=== PATIENT | female | born 1955 | race Caucasian/White ===

== ENCOUNTER 2022-01-29 14:29 | Outpatient (CLI) | payer MEDICARE ==
[2022-01-29 16:16] LABS: Anion Gap 14 mmol/L (10-20); BUN (Urea Nitrogen) 21 mg/dL (9.8-20.1); Calc. Creatinine Clearance 0 mL/min (70-130); Calcium 9.6 mg/dL (7.8-10.44); Carbon Dioxide 31 mmol/L (23-31); Chloride 103 mmol/L (98-107); Glucose 116 mg/dL (80-115); Potassium 4.4 mmol/L (3.5-5.1); Sodium 144 mmol/L (136-145)
[2022-01-30 12:38] LABS: SARS-CoV-2 PCR by NAA Not Detected (NotDetected)
== END 2022-01-29 14:30 | disposition home or self-care (01) ==
LOC: LABBT 14:29
PROVIDERS: ATTEND Surgery
DX: Z01.812 Encounter for preprocedural laboratory examination (principal); M79.89 Other specified soft tissue disorders; Z20.822 Contact with and (suspected) exposure to COVID-19
CPT/HCPCS: 80048; U0003; U0005

== ENCOUNTER 2022-02-03 11:36 | Day surgery (SDC) | payer MEDICARE ==
[2022-02-01 14:59] VITALS: BMI 28.3
[2022-02-03] MEDS ORDERED: fentaNYL Citrate/PF 100 MCG/2 ML SYRINGE ONE ×2 (14:18→14:37)
[2022-02-03] MEDS ORDERED: SUGAMMADEX SODIUM 200 MG/2 ML VIAL ONE (14:18)
[2022-02-03] MEDS ORDERED: Bupivacaine PF 0.5% 30 ML VIAL ONE (14:30)
[2022-02-03] MEDS ORDERED: Lidocaine 1% w/Epinephrine 1:100K 20 ML VIAL ONE (14:30)
[2022-02-03] MEDS ORDERED: ceFAZolin (BATCH) 2 GM/100 ML BAG ONE (14:36)
[2022-02-03] MEDS ORDERED: Famotidine/PF 20 mg/2ml Vial ONE (14:37)
[2022-02-03] MEDS ORDERED: Ondansetron PF 4 MG/2 ML Vial ONE (14:50)
[2022-02-03] MEDS ORDERED: Ketorolac Tromethamine 30 MG/ML VIAL ONE (14:50)
[2022-02-03] MEDS ORDERED: Rocuronium Bromide 10 MG/ML (10ML VIAL) ONE (14:50)
[2022-02-03] MEDS ORDERED: Lidocaine 1% PF 5 ML VIAL ONE (14:50)
[2022-02-03] MEDS ORDERED: PROPOFOL 200 MG/20 ML VIAL ONE (14:50)
[2022-02-03] MEDS ORDERED: Dexamethasone 20 MG/5 ML VIAL ONE (14:50)
== END 2022-02-03 17:13 | disposition home or self-care (01) ==
LOC: SDC 11:36
PROVIDERS: ATTEND Surgery
PROC: 0JB90ZZ Excision of Buttock Subcutaneous Tissue and Fascia, Open Approach (ICD-10-PCS; principal; 2022-02-03)
DX: D17.39 Benign lipomatous neoplasm of skin and subcutaneous tissue of other sites (principal); E78.00 Pure hypercholesterolemia, unspecified; I10 Essential (primary) hypertension; Z79.899 Other long term (current) drug therapy
CPT/HCPCS: 88304; J0690; J1100; J1885; J2405; J2704; S0020; S0028

== ENCOUNTER 2023-01-26 13:30 | Outpatient (CLI) | payer MEDICARE ==
[2023-01-26 16:07] LABS: Hemoglobin 12.4 g/dL (12.0-15.5); Mean Corpuscular HGB CONC 32.2 g/dL (32.0-36.0); Mean Corpuscular Hemoglobin 29.2 pg (27.0-33.0); Mean Corpuscular Volume 90.8 fl (81.6-98.3); Platelet Count 237 10x3/uL (150-450); RBC Distribution Width 13.1 % (11.5-14.5); Red Blood Cell (RBC) Count 4.24 10x6/uL (3.90-5.03); White Blood Cell (WBC) Count 6.9 10x3/uL (3.5-10.5)
[2023-01-26 16:23] LABS: Anion Gap 12 mmol/L (10-20); BUN (Urea Nitrogen) 20 mg/dL (9.8-20.1); Calc. Creatinine Clearance 0 mL/min (70-130); Calcium 9.2 mg/dL (7.8-10.44); Carbon Dioxide 33 mmol/L (23-31); Chloride 100 mmol/L (98-107); Estimated GFR 75; Glucose 109 mg/dL (80-115); Potassium 4.2 mmol/L (3.5-5.1); Sodium 141 mmol/L (136-145)
== END 2023-01-26 13:31 | disposition home or self-care (01) ==
LOC: LABBT 13:30
PROVIDERS: ATTEND Orthopaedic Surgery
DX: Z01.812 Encounter for preprocedural laboratory examination (principal); S52.502A Unspecified fracture of the lower end of left radius, initial encounter for closed fracture
CPT/HCPCS: 80048; 85027

== ENCOUNTER 2023-01-27 11:57 | Day surgery (SDC) | payer MEDICARE ==
[2023-01-26 14:49] VITALS: BMI 30.5
[2023-01-27] MEDS ORDERED: Midazolam HCl 2 mg/2 ml Vial ONE (13:08)
[2023-01-27] MEDS ORDERED: Bupivacaine PF 0.5% 30 ML VIAL ONE (13:08)
[2023-01-27] MEDS ORDERED: fentaNYL 50 mcg/mL 1 mL Vial ONE (13:08)
[2023-01-27] MEDS ORDERED: fentaNYL PF 100 MCG/2 ML SYRINGE ONE (14:23)
[2023-01-27] MEDS ORDERED: CEFAZOLIN 2 GM VIAL ONE (14:32)
[2023-01-27] MEDS ORDERED: Sodium Chloride 0.9% 100 ML ONE (14:32)
[2023-01-27] MEDS ORDERED: PROPOFOL 200 MG/20 ML VIAL ONE (14:48)
[2023-01-27] MEDS ORDERED: Dexamethasone 20 MG/5 ML VIAL ONE (14:48)
[2023-01-27] MEDS ORDERED: Ondansetron PF 4 MG/2 ML Vial ONE (14:48)
[2023-01-27] MEDS ORDERED: Bupivacaine HCl 0.5%/Epinephrine 1:200,000/PF 30 ml Vial ONE (14:48)
[2023-01-27] MEDS ORDERED: Ketorolac Tromethamine 30 MG/ML VIAL ONE (14:48)
== END 2023-01-27 17:04 | disposition home or self-care (01) ==
LOC: SDC 11:57
PROVIDERS: ATTEND Orthopaedic Surgery
PROC: 0PSJ04Z Reposition Left Radius with Internal Fixation Device, Open Approach (ICD-10-PCS; principal; 2023-01-27)
DX: S52.592A Other fractures of lower end of left radius, initial encounter for closed fracture (principal); S52.612A Displaced fracture of left ulna styloid process, initial encounter for closed fracture; I34.0 Nonrheumatic mitral (valve) insufficiency; I10 Essential (primary) hypertension; E11.9 Type 2 diabetes mellitus without complications; E78.2 Mixed hyperlipidemia; Z79.899 Other long term (current) drug therapy; Z88.5 Allergy status to narcotic agent; W19.XXXA Unspecified fall, initial encounter
CPT/HCPCS: 25609; 73100; J3010; C1713; J1100; J1885; J2250; J2405; J2704; J3490; S0020